=== PATIENT | female | born 1985 | race Caucasian/White ===

== ENCOUNTER 2019-11-15 21:03 | Emergency (ER) | payer MEDICAID ==
[~2019-11-15] VITALS: Ht 157.5 cm; Wt 85.3 kg
[2019-11-15 21:08] VITALS: BP 130/76
[2019-11-15] MEDS ORDERED: KETOROLAC 30 MG/ML VIAL IVP ONE (21:30)
[2019-11-15] MEDS ORDERED: ONDANSETRON 4 MG/2 ML VIAL IVP ONE (21:30)
[2019-11-15 22:06] LABS: BASOPHILS # (AUTO) 0.1 K/uL (0.00-0.22); BASOPHILS % (AUTO) 1.1 % (0.0-2.0); EOSINOPHILS # (AUTO) 0.7 K/uL (0-0.4); HEMATOCRIT 31.1 % (36-48); HEMOGLOBIN 9.7 g/dL (12.0-16.0); LYMPHOCYTES # (AUTO) 2.7 K/uL (2.5-16.5); LYMPHOCYTES % (AUTO) 28.8 % (20.5-51.1); MEAN CORPUSCULAR HEMOGLOBIN 21 pg (27-31); MEAN CORPUSCULAR HGB CONC 31 g/dL (33-37); MEAN CORPUSCULAR VOLUME 68.1 fL (80-94); MONOCYTES # (AUTO) 0.7 K/uL (0.8-1.0); NEUTROPHILS % (AUTO) 54.1 % (42.2-75.2); PLATELET COUNT (AUTO) 415 K/uL (140-450); RED BLOOD CELL COUNT(AUTO) 4.57 MIL/uL (4.20-5.40); RED CELL DISTRIBUTION WIDTH 18.9 % (11.6-13.7); WHITE BLOOD COUNT (AUTO) 9.3 K/uL (4.8-10.8)
[2019-11-15] MEDS ORDERED: MORPHINE SULFATE 4 MG/ML SYR IVP ONE (22:10)
[2019-11-15 22:12] LABS: APPEARANCE,URINE CLEAR (CLEAR); BILIRUBIN,URINE NEGATIVE (NEGATIVE); BLOOD, URINE 1+ (NEGATIVE); COLOR,URINE YELLOW (YELLOW); LEUKOCYTE ESTERASE ,URINE NEGATIVE (NEGATIVE); NITRITE, URINE NEGATIVE (NEGATIVE); PH,URINE 6.5 (5.0-9.0); UGLUCOSE NEGATIVE (NEGATIVE)
[2019-11-15 22:23] LABS: ALBUMIN 3.4 g/dL (3.4-5.0); ANION GAP 12.4 (8-16); CARBON DIOXIDE 27.5 mmol/L (21-32); CREATININE 1.2 mg/dL (0.6-1.3); POTASSIUM 3.9 mmol/L (3.5-5.1); TOTAL BILIRUBIN 0.1 mg/dL (0.0-1.0)
[2019-11-15 22:24] LABS: RBC,URINE 0-5 /HPF (0-5); WBC,URINE 0-5 /HPF (0-5)
[2019-11-15 22:31] VITALS: BP 130/76
== END 2019-11-15 23:08 | disposition home or self-care (01) ==
LOC: MED 21:03
DX: K80.20 Calculus of gallbladder without cholecystitis without obstruction (principal); J45.909 Unspecified asthma, uncomplicated; Z98.890 Other specified postprocedural states
CPT/HCPCS: 36415; 76705; 80053; 81001; 81025; 83690; 85025; 96374; 96375; 99284; J1885; J2270; J2405; Q0092

== ENCOUNTER 2019-11-21 17:48 | Emergency (ER) | payer MEDICAID ==
[~2019-11-21] VITALS: Ht 157.5 cm; Wt 83.0 kg
[2019-11-21 18:18] VITALS: BP 120/51
--- NOTE | 2019-11-21 18:36 | NUR ---
PT AMBULATED TO BED 4, STEADY GAIT.
--- NOTE | 2019-11-21 18:39 | NUR ---
34 Y/O F C/C RIGHT SIDED FLANK PAIN WITH NAUSEA X 6 DAYS. PER PT SHARP PAIN 8/10, RADIATING TO THE EPIGASTRIC REGION, CONSTANT PAIN. TAKEN OTC RX WITH NO RELIEF. DENIES HEMATEMESIS OR HEMATURIA. PER PT SLIGHT BURNING SENSATION WHEN URINATING. HX KIDNEY STONES, ASTHMA. RX ALBUTEROL PRN. NO VD. SIDE RAIL X1.
[2019-11-21 18:59] LABS: APPEARANCE,URINE CLEAR (CLEAR); BILIRUBIN,URINE NEGATIVE (NEGATIVE); BLOOD, URINE NEGATIVE (NEGATIVE); COLOR,URINE YELLOW (YELLOW); LEUKOCYTE ESTERASE ,URINE NEGATIVE (NEGATIVE); NITRITE, URINE NEGATIVE (NEGATIVE); UGLUCOSE NEGATIVE (NEGATIVE)
--- NOTE | 2019-11-21 19:10 | NUR ---
Pt report RECEIVED FROM LUIS EDUARDO FONG. ASSUMED care at this time.
--- NOTE | 2019-11-21 19:10 | NUR ---
REPORT GIVEN TO ABBIE HOFF FOR CONTINUITY OF CARE
[2019-11-21] MEDS ORDERED: KETOROLAC 30 MG/ML VIAL IM ONE (19:35)
[2019-11-21 20:08] LABS: BASOPHILS # (AUTO) 0.1 K/uL (0.00-0.22); EOSINOPHILS # (AUTO) 0.6 K/uL (0-0.4); EOSINOPHILS % (AUTO) 5.9 % (0.0-4.0); HEMATOCRIT 30.4 % (36-48); HEMOGLOBIN 9.6 g/dL (12.0-16.0); LYMPHOCYTES # (AUTO) 2.7 K/uL (2.5-16.5); LYMPHOCYTES % (AUTO) 27.9 % (20.5-51.1); MEAN CORPUSCULAR HEMOGLOBIN 21 pg (27-31); MEAN CORPUSCULAR HGB CONC 32 g/dL (33-37); MEAN CORPUSCULAR VOLUME 67.9 fL (80-94); MONOCYTES # (AUTO) 0.7 K/uL (0.8-1.0); MONOCYTES % (AUTO) 6.9 % (1.7-9.3); NEUTROPHILS # (AUTO) 5.7 K/uL (1.8-7.7); NEUTROPHILS % (AUTO) 58.3 % (42.2-75.2); PLATELET COUNT (AUTO) 357 K/uL (140-450); RED BLOOD CELL COUNT(AUTO) 4.47 MIL/uL (4.20-5.40); RED CELL DISTRIBUTION WIDTH 18.8 % (11.6-13.7); WHITE BLOOD COUNT (AUTO) 9.8 K/uL (4.8-10.8)
[2019-11-21] MEDS ORDERED: HYDROcodone/APAP 5/325 MG 1 TAB TAB PO ONE (20:10)
[2019-11-21 20:24] LABS: ALBUMIN 3.5 g/dL (3.4-5.0); ANION GAP 10.5 (8-16); CARBON DIOXIDE 26.2 mmol/L (21-32); CREATININE 1.1 mg/dL (0.6-1.3); POTASSIUM 3.7 mmol/L (3.5-5.1); TOTAL BILIRUBIN 0.2 mg/dL (0.0-1.0)
[2019-11-21] MEDS ORDERED: NACL 0.9% 1,000 ML IV ONE (20:40)
[2019-11-21] MEDS ORDERED: NACL 0.9% 1,500 ML IV ONE (20:45)
[2019-11-21] MEDS ORDERED: ONDANSETRON 4 MG/2 ML VIAL IVP ONE (20:45)
[2019-11-21] MEDS ORDERED: MORPHINE SULFATE 4 MG/ML SYR IVP ONE (20:45)
--- NOTE | 2019-11-21 21:04 | NUR ---
PT RESTING IN BED IN POSITION OF COMFORT, BED LOW AND LOCKED, VSS, 2 SIDERAILS UP, PT REPORTS PAIN RELIEF FROM RECENT IV MED. PAIN NOW 10/08. LIGHTS DIMMED. JUST A FEW ICE CHIPS GIVEN . WILL CONTINUE TO MONITOR.
[2019-11-21 22:05] VITALS: BP 111/71
--- NOTE | 2019-11-21 22:05 | NUR ---
IV removed, catheter intact and site benign. Applied folded 4x4 gauze and tape to stop bleeding.
== END 2019-11-21 22:05 | disposition home or self-care (01) ==
LOC: MED 17:48
DX: K80.20 Calculus of gallbladder without cholecystitis without obstruction (principal); J45.909 Unspecified asthma, uncomplicated
CPT/HCPCS: 36415; 74176; 76705; 80053; 81003; 81025; 85025; 96372; 96374; 96375; 99285; J1885; J2270; J2405; J7030; Q0092

== ENCOUNTER 2020-03-15 23:35 | Emergency (ER) | payer MEDICAID ==
[~2020-03-15] VITALS: Ht 157.5 cm; Wt 82.6 kg
[2020-03-15 23:42] VITALS: BP 112/81
--- NOTE | 2020-03-15 23:44 | NUR ---
PT TAKEN TO BED 7
--- NOTE | 2020-03-15 23:50 | NUR ---
34 YO FEMALE BIB SELF FOR ITCHINESS X 3-4 DAYS, REDNESS NOTED TO BILATERAL HANDS, ARMS AND UPPER CHEST AREA. PT WAS GIVEN RX OF CLINDAMYCIN AND MUCIPORIN CREAM. PT AAOX4, SITTING UP IN GURNEY, DENIES PAIN @ THIS TIME. GURNEY LOCKED IN LOWEST POSITION WILL UPDATE ERMD. HX: ASTHMA, EXCZEMA RX: CLINDAMYCIN MUCIPORIN AX: PHILLYA
--- NOTE | 2020-03-16 00:02 | NUR ---
Dr. Beaver examining patient.
[2020-03-16] MEDS ORDERED: diphenhydrAMINE 50 MG CAP PO ONE (00:10)
[2020-03-16] MEDS ORDERED: BLOOD GLUCOSE MONITORING 1 DEV DEV FS ONE (00:10)
[2020-03-16 00:52] VITALS: BP 112/81
--- NOTE | 2020-03-16 00:53 | NUR ---
Patient discharged with v/s stable. Written and verbal after care instructions given and explained. Patient alert, oriented and verbalized understanding of instructions. Ambulatory with steady gait. All questions addressed prior to discharge. ID band removed. Patient advised to follow up with PMD. Rx of ACETIC ACID OTITIC SOLUTION given. Patient educated on indication of medication including possible reaction and side effects. Opportunity to ask questions provided and answered.
== END 2020-03-16 00:53 | disposition home or self-care (01) ==
LOC: MED 23:35
DX: H60.93 Unspecified otitis externa, bilateral (principal); L30.9 Dermatitis, unspecified
CPT/HCPCS: 99283; Q0163

== ENCOUNTER 2020-07-04 17:47 | Emergency (ER) | payer MEDICAID ==
--- NOTE | 2020-07-04 18:24 | NUR ---
PATIENT LEFT WITHOUT BEING SEEN BY DR. Clark. NO FURTHER CARE PROVIDED FOR PATIENT.
== END 2020-07-04 18:24 | disposition left against medical advice (07) ==
LOC: MED 17:47
DX: Z53.21 Procedure and treatment not carried out due to patient leaving prior to being seen by health care provider (principal)